=== PATIENT | female | born 1990 | race Caucasian/White ===

== ENCOUNTER 2019-08-01 14:09 | Emergency (ER) | payer OTHER, SELFPAY ==
--- NOTE | ~2019-08-01 | XR_ITS ---
EXAMINATION: XR hand LT min 3V DATE: 08/01/2019 14:41 INDICATION: Left thumb pain. TECHNIQUE: 3 views of left hand were obtained. COMPARISON: Left wrist radiographs 11/28/2008 FINDINGS: Bone alignment is normal. No fracture. Joint spaces are well maintained. IMPRESSION: 1. Normal left hand. Reviewed, dictated and finalized at location A. IMPRESSION: 1. Normal left hand.
[2019-08-01 14:32] VITALS: BP 147/72; PULSE 79; RESP 16; TEMP 37.4; O2SAT 99
--- NOTE | 2019-08-01 14:43 | ED.UPPEXIN ---
HPI - Extremity Injury (Upper) General Chief Complaint: Extremity Injury, Upper Stated Complaint: left thumb injury Time Seen by Provider: 08/01/19 14:43 Source: patient Mode of arrival: ambulatory Limitations: no limitations History of Present Illness HPI narrative: Joanne Roy is a 29 yo female with a PMH of anxiety, seasonal allergies, asthma, migraines, was doing cart was with her niece about an hour ago and heard a snap in her left thumb she did cartwheel. Rates pain is 8 out of 10 Related Data Home Medications Medication Instructions Recorded Confirmed albuterol sulfate 1 inh INHALATION QID 08/01/19 08/01/19 [id number]-iyfyvjqgneerx-knnu 1 cap PO QID 08/01/19 08/01/19 [Fioricet] levonorgestrel [Mirena] 1 device INTRAUTERINE ONCE 08/01/19 08/01/19 montelukast [Singulair] 10 mg PO DAILY 08/01/19 08/01/19 sertraline [Zoloft] 100 mg PO DAILY 08/01/19 08/01/19 topiramate [Topamax] 100 mg PO DAILY 08/01/19 08/01/19 Allergies Allergy/AdvReac Type Severity Reaction Status Date / Time cefaclor Allergy Mild Rash Unverified 08/01/19 14:38 acetaminophen Allergy Unknown Verified 08/01/19 14:38 diphenhydramine Allergy Hallucinati Verified 08/01/19 14:38 [From Benadryl] ng sumatriptan Allergy Unknown Verified 08/01/19 14:38 HYDROCODONE BIT Allergy Unknown Uncoded 08/01/19 14:38 SUMATRIPTAN SUCCINATE Allergy Unknown Uncoded 08/01/19 14:38 vasodialotors AdvReac Severe Stopped Uncoded 06/13/11 00:36 Breathing Review of Systems Review of Systems: Narrative: CONSTITUTIONAL: Denies fever, chills, sweats. EYES: Denies visual changes, redness, discharge. ENT: Denies rhinorrhea, congestion, sore throat, otalgia. CARDIOVASCULAR: Denies chest pain, palpitations, edema. RESPIRATORY: Denies dyspnea, wheezing, cough GASTROINTESTINAL: Denies abdominal pain, nausea, vomiting, diarrhea. GENITOURINARY: Denies dysuria, hematuria, abnormal discharge SKIN: Denies rash or itching. NEUROLOGIC: Denies numbness, or focal weakness. PSYCHIATRIC: Denies anxiety or depression. Left thumb pain and reduced mobility PMFSH Family History Family History Other No active medical problems Social History Social History Smoking status: Never smoker Alcohol intake: never Gender identity (if verbalized by the patient): Female Comments Have reviewed social medical and surgical history with patient; history is are not relevant to recent patient is being seen here today Exam Narrative: Exam Narrative: GENERAL: This is a well-nourished, well-developed patient, in moderate distress. HEAD: normocephalic, atraumatic. EYES: Sclera clear/white. Vision is grossly intact. EARS: External ears normal. Hearing grossly intact. NOSE: External nose normal no rhinorrhea. THROAT: Mucous membranes moist, NECK: Neck supple, good range of motion CARDIOVASCULAR: Regular rate and rhythm without murmurs, gallops, or rubs. RESPIRATORY: Clear to auscultation. Breath sounds equal bilaterally. No wheezes, rales, or rhonchi. GASTROINTESTINAL: Abdomen soft, non-tender, SKIN: warm, intact with no suspicious lesions or rash, good texture and turgor. NEURO: awake, alert, and oriented to person, place and time. There were no obvious focal neurologic abnormalities. Steady gait EXTREMITIES: Normal range of motion and. Both are splay fingers due to pain, hand/fingers are warm, pink, cap refill less than 3 seconds BACK: Nontender without deformity Course Course Emergency Course: X-ray of left hand-it is negative for fracture Placed in thumb immobilizer, naprosyn for pain Vital Signs Vital signs: Vital Signs Temperature 99.4 F 08/01/19 14:32 Pulse Rate 79 08/01/19 14:32 Respiratory Rate 16 08/01/19 14:32 Blood Pressure 147/72 H 08/01/19 14:32 Pulse Oximetry 99 08/01/19 14:32 Temperature 99.4 F 08/01/19 14:32 Pulse Rate 79 05/1
== END 2019-08-01 14:57 | disposition home or self-care (01) ==
PROVIDERS: Emergency Provider Nurse Practitioner
DX: S63.622A Sprain of interphalangeal joint of left thumb, initial encounter (principal); J45.909 Unspecified asthma, uncomplicated; Q79.60 Ehlers-Danlos syndrome, unspecified; F41.9 Anxiety disorder, unspecified; F32.9 Major depressive disorder, single episode, unspecified; X50.9XXA Other and unspecified overexertion or strenuous movements or postures, initial encounter
CPT/HCPCS: 29130; 73130; 99213; G0463

== ENCOUNTER 2019-08-24 23:04 | Emergency (ER) | payer OTHER, SELFPAY ==
--- NOTE | ~2019-08-24 | XR_ITS ---
XR knee LT min 4V DATE: 08/24/2019 23:37 INDICATION: Fall. Left knee pain and swelling TECHNIQUE: Crosstable lateral, AP and bilateral oblique views COMPARISON: None FINDINGS: No fracture or dislocation or joint effusion. No periosteal reaction or bone destruction. J oint spaces are well preserved. No radiopaque intra-articular loose body or chondrocalcinosis. IMPRESSION: Negative Reviewed, dictated and finalized at location A. IMPRESSION: Negative
[2019-08-24 23:04] VITALS: BP 114/77; PULSE 81; RESP 17; TEMP 37.2; O2SAT 100
--- NOTE | 2019-08-24 23:32 | ED.LOWEXIN ---
HPI - Extremity Injury (Lower) General Chief Complaint: Extremity Injury, Lower Stated Complaint: knee pain/ fall Time Seen by Provider: 08/24/19 23:19 History of Present Illness HPI Narrative: Patient presents with her mother for left knee pain. She fell to the concrete over a platform, from standing. The knee is swollen and bruised. She has a history of surgery on that left knee. She had no loss of consciousness. Her mother tells me that she has decreased sensation in that left anterior calf after the surgery. And that she is afraid to have another surgery in case that would get worse. She is supposed to move to [place] to be with her fianc?. She has a broken left arm from doing a cartwheel. MD complaint: knee injury and fall Onset (ago): hour(s) Injury: Left: knee Place: home Severity: moderate Relieving factors: nothing Exacerbating factors: nothing Context: fall Associated symptoms: swelling Related Data Home Medications Medication Instructions Recorded Confirmed albuterol sulfate 1 inh INHALATION QID 08/01/19 08/01/19 [id number]-rdjtodyooqohw-[id number] 1 cap PO QID 08/01/19 08/01/19 [Fioricet] levonorgestrel [Mirena] 1 device INTRAUTERINE ONCE 08/01/19 08/01/19 montelukast [Singulair] 10 mg PO DAILY 08/01/19 08/01/19 sertraline [Zoloft] 100 mg PO DAILY 08/01/19 08/01/19 topiramate [Topamax] 100 mg PO DAILY 08/01/19 08/01/19 Allergies Allergy/AdvReac Type Severity Reaction Status Date / Time cefaclor Allergy Mild Rash Verified 08/24/19 23:07 diphenhydramine Allergy Hallucinati Verified 08/24/19 23:07 [From Benadryl] ng sumatriptan Allergy Unknown Verified 08/24/19 23:07 HYDROCODONE BIT Allergy Unknown Uncoded 08/24/19 23:07 SUMATRIPTAN SUCCINATE Allergy Unknown Uncoded 08/24/19 23:07 vasodialotors AdvReac Severe Stopped Uncoded 08/24/19 23:07 Breathing Review of Systems Review of Systems: Narrative: CONSTITUTIONAL: Denies fever, chills, or sweats. EYES: Denies visual changes, redness, or discharge. ENT: Denies rhinorrhea, congestion, sore throat, or otalgia. CARDIOVASCULAR: Denies chest pain, palpitations, or edema. RESPIRATORY: Denies cough or dyspnea. GASTROINTESTINAL: Denies abdominal pain, nausea, vomiting, or diarrhea. GENITOURINARY: Denies dysuria or hematuria. SKIN: Denies rash or itching. MUSCULOSKELETAL: Denies back pain, or myalgia. NEUROLOGIC: Denies headache, numbness, or weakness. PSYCHIATRIC: Denies anxiety or depression. [facility] Surgical History Surgical History (Updated 08/24/19 @ 23:32 by Tamica Rivas MD) History of knee surgery Social History Social History (Updated 08/24/19 @ 23:33 by Tamica Rivas MD) Smoking status: Never smoker Alcohol intake: never Substance use: never Gender identity (if verbalized by the patient): Female Exam Narrative: Exam Narrative: GENERAL: Well-appearing, well-nourished, and in no acute distress. Red hair HEAD: Normocephalic, atraumatic. EYES: PERRLA and EOMI. ENT: Nares clear, no rhinorrhea or epistaxis. Mucous membranes moist. NECK: Supple. CHEST: Clear to auscultation. No respiratory distress. HEART: Regular rate and rhythm. No murmur heard. Normal peripheral pulses. ABDOMEN: Soft, nontender, nondistended, normal active bowel sounds. EXTREMITIES: Left knee with swelling and slight abrasion. SKIN: Warm, dry, no rash. NEURO: No focal deficits. Alert and oriented x3. PSYCH: Normal mood and affect. Course Reevaluation(s) Reevaluation #1: Woman to tell the patient that she has no fractures, but the x-ray does not show soft tissue. If her injury does not heal up well she will have to have an MRI, for ligaments and tendon damage. Offered her knee immobilizer. Date: 08/25/19 Time: 00:19 Vital Signs Vital signs: Vital Signs Temperature 98.9 F 08/24/19 23:04 Pulse Rate 81 08/24/19 23:04 Respiratory Rate 17 08/24/19 23:04 Blood Pressure 114/77 08/24/19 23:04 Pulse Oximetry 100 08/24/19 23:04 Temperat
[2019-08-25 00:25] VITALS: BP 107/66; PULSE 74; RESP 16; O2SAT 100
== END 2019-08-25 00:26 | disposition home or self-care (01) ==
PROVIDERS: Emergency Provider Emergency Medicine
DX: S89.92XA Unspecified injury of left lower leg, initial encounter (principal); W18.09XA Striking against other object with subsequent fall, initial encounter
CPT/HCPCS: 73564; 99283

== ENCOUNTER 2021-11-03 07:58 | Outpatient (RCR) | payer BC, SELFPAY ==
[2021-11-03 08:32] VITALS: BMI 27.8
[2021-11-03 09:15] VITALS: BMI 27.8
== END 2022-01-17 08:13 | disposition home or self-care (01) ==
LOC: ANHDMC 07:58
PROVIDERS: Visit Provider Physician Assistant
DX: E16.2 Hypoglycemia, unspecified (principal); E66.3 Overweight; Z71.3 Dietary counseling and surveillance
CPT/HCPCS: 97802

== ENCOUNTER 2024-04-03 09:01 | Emergency (ER) | payer OTHER, SELFPAY ==
--- NOTE | ~2024-04-03 | XR_ITS ---
XR finger 3rd RT min 2V Ordering provider: Anette Prajapati NP History: . rt 3rd finger pain s/p injury yesterday . Comparison: None. FINDINGS: BONES: No acute fracture or dislocation. JOINT SPACES: Normal. SOFT TISSUES: Normal. IMPRESSION: No acute osseous abnormality. Reviewed, dictated and finalized at location A. EN OPERATOR
[2024-04-03 09:19] VITALS: BP 116/65; PULSE 62; RESP 16; TEMP 36.4; O2SAT 99
--- NOTE | 2024-04-03 09:32 | ED_ITS ---
HPI - Extremity Injury (Upper) General Chief Complaint: Extremity Injury, Upper Stated Complaint: righ middle finger injury Time Seen by Provider: 04/03/24 09:34 Source: patient and RN notes reviewed Mode of arrival: ambulatory Limitations: no limitations History of Present Illness HPI narrative: 33-year-old female presents concern for injury of the 3rd digit of the right hand. Reports she smashed it in a door yesterday. She has been taking Tylenol. Reports she has trouble bending the finger MD complaint: injury to: right and finger Related Data Home Medications ?Medication ?Instructions ?Recorded ?Confirmed ?Last Taken ?Type albuterol sulfate 90 mcg/actuation 1 inh inhalation QID 08/01/19 08/01/19 Unknown History aerosol inhaler [id number]-itzyhdmupsyxx-obuivbcy 1 cap PO QID 08/01/19 08/01/19 Unknown History 50 mg-300 mg-40 mg capsule (Fioricet) levonorgestrel (Mirena) 1 device intrauterine ONCE 08/01/19 08/01/19 Unknown History montelukast 10 mg tablet 10 mg PO DAILY 08/01/19 08/01/19 Unknown History (Singulair) sertraline 100 mg tablet (Zoloft) 100 mg PO DAILY 08/01/19 08/01/19 Unknown History topiramate 100 mg tablet (Topamax) 100 mg PO DAILY 08/01/19 08/01/19 Unknown History Allergies Allergy/AdvReac Type Severity Reaction Status Date / Time cefaclor Allergy Mild Rash Verified 08/24/19 23:07 diphenhydramine (From Allergy Hallucinati Verified 08/24/19 23:07 Benadryl) ng sumatriptan Allergy Unknown Verified 08/24/19 23:07 HYDROCODONE BIT Allergy Unknown Uncoded 08/24/19 23:07 SUMATRIPTAN SUCCINATE Allergy Unknown Uncoded 08/24/19 23:07 vasodialotors AdvReac Severe Stopped Uncoded 08/24/19 23:07 Breathing Review of Systems Review of Systems: CONSTITUTIONAL: Denies malaise, chills, sweats, or fever. SKIN: Denies rash or itching, open skin, laceration, abrasion, redness, warmth, swelling. MUSCULOSKELETAL: Reports right finger pain bruising, swelling NEUROLOGIC: Denies numbness, weakness All systems reviewed & are unremarkable except as noted in HPI and below PMFSH Surgical History Surgical History (Updated 08/24/19 @ 23:32 by Tamica Rivas MD) History of knee surgery Family History Family History Other No active medical problems Social History Social History (Updated 08/24/19 @ 23:33 by Tamica Rivas MD) Smoking status: Never smoker Alcohol intake: never Substance use: never Gender identity (if verbalized by the patient): Female Spiritual care concerns: No Comments At time of signature, agree with nursing past medical, surgical, social and family history. There is no relevant family history pertinent to the presenting complaint Exam Narrative: GENERAL: Well-appearing, well-nourished, and in no acute distress. HEAD: Normocephalic, atraumatic. EYES: PERRLA, conjunctivae clear NECK: Supple. CHEST: Speaks in full sentences. No respiratory distress. HEART: Regular rate and rhythm. Normal and equal peripheral pulses. EXTREMITIES: 3rd digit hand has grossly normal strength and sensation, limited normal range of motion; patient is able to bend the finger but not fully. Moderate edema and ecchymosis. 4/5 strength with digit flexion and extension. Normal sensation with sensitivity to light touch and pain. General digit tenderness. No open wounds, no skin tenting, no devitalized tissue or atrophy, no trophic changes, no obvious deformity, alignment normal, nearby joints and structures intact. Distal pulses palpable and equal bilaterally, skin warm, dry, pink. Capillary refill less than 3 seconds. SKIN: Warm, dry, no rash. NEURO: Alert and oriented x3. PSYCH: Normal mood and affect Course Course Emergency Course: Patient is aware of diagnosis, understands and agrees to treatment plan. Anticipatory guidance given. Patient agrees to follow-up as directed and is aware of reasons to seek care at the emergency department. Portions of this record may have been created with voice recognition software Level of Care: Express Care Visit Vital Signs Vital signs: Vital Signs Temperature 97.5 F L 04/03/24 09:19 Pulse Rate 62 04/03/24 09:19 Respiratory Rate 16 04/03/24 09:19 Blood Pressure 116/65 04/03/24 09:19 Pulse Oximetry 99 04/03/24 09:19 Oxygen Delivery Room Air 04/03/24 09:19 Temperature 97.5 F L 04/03/24 09:19 Pulse Rate 62 04/03/24 09:19 Respiratory Rate 16 04/03/24 09:19 Blood Pressure 116/65 04/03/24 09:19 Pulse Oximetry 99 04/03/24 09:19 Oxygen Delivery Room Air 04/03/24 09:19 Reviewed. MDM - Extremity Injury (Upper) MDM Narrative Medical decision making narrative: Patients injury and pain is consistent with musculoskeletal etiology. No signs of neurological or vascular compromise on exam. Compartments and tissues are soft without signs of compartment syndrome. Pain is felt appropriate for further evaluation on an outpatient basis. Imaging Data My impression: Images reviewed, interpreted by radiologist, agree, see report. Radiologist's impression: XR finger 3rd RT min 2V Ordering provider: Anette Prajapati NP History: . rt 3rd finger pain s/p injury yesterday . Comparison: None. FINDINGS: BONES: No acute fracture or dislocation. JOINT SPACES: Normal. SOFT TISSUES: Normal. IMPRESSION: No acute osseous abnormality. Critical Care Time Critical Care Time Critical Care Time: No Discharge Plan Discharge Clinical Impression: Contusion of finger of right hand Patient Disposition: Home, Self-Care Condition: Stable Instructions: Contusion in Adults (ED) Additional Instructions: Avoid activities that cause pain until the pain subsides. Ice to the area 20-30 minutes 4-6 times a day Elevate above heart Orthopedic splint as directed for comfort for the next 5-7 days Tylenol for lesser pain Ibuprofen regularly for the next 2-3 days for the inflammation Follow up with your primary care provider or specialist if the condition is not improving within 1 week. If the condition worsens with numbness, tingling, decrease sensation with weakness seek treatment in the emergency room immediately. Patient Language: Wolof Prescriptions: No Action Mirena 20 mcg/24 hours (5 yrs) 52 mg Intrauterine Device 1 device INTRAUTERINE ONCE sertraline [Zoloft] 100 mg Tablet 100 mg PO DAILY montelukast [Singulair] 10 mg Tablet 10 mg PO DAILY albuterol sulfate 90 mcg/actuation Hfa Aerosol Inhaler 1 inh INHALATION QID topiramate [Topamax] 100 mg Tablet 100 mg PO DAILY poqqpfskuo-fqifokaexppbq-jiyf [Fioricet] 50-300-40 mg Capsule 1 cap PO QID naproxen [Naprosyn] 500 mg tablet 500 mg PO BID PRN (Reason: pain) Qty: 30 0RF hydrocodone-acetaminophen [[place]] 5-325 mg tablet 1 tablet PO Q4H PRN (Reason: pain) Qty: 10 0RF Follow-up/Referrals: Luis Miguel Ta MD [Physician] - (Finger injury) Oh,LATHA Lima [Primary Care Provider] - Time of Disposition: 09:52
== END 2024-04-03 10:01 | disposition home or self-care (01) ==
PROVIDERS: Emergency Provider Nurse Practitioner; PCP Physician Assistant
DX: S60.031A Contusion of right middle finger without damage to nail, initial encounter (principal); X58.XXXA Exposure to other specified factors, initial encounter
CPT/HCPCS: 29130; 73140; 99213; G0463

== ENCOUNTER 2024-11-15 13:43 | Emergency (ER) | payer OTHER, SELFPAY ==
[2024-11-15 13:55] VITALS: BP 107/57; PULSE 61; RESP 18; TEMP 36.9; O2SAT 100
--- NOTE | 2024-11-15 14:18 | ED.HEATRA ---
HPI - Head Injury General Chief complaint: Wound/Laceration Stated complaint: Head Pain / nauseous Time Seen by Provider: 11/15/24 14:18 Mode of arrival: ambulatory Limitations: no limitations History of Present Illness HPI Narrative: 34-year-old female presents with concern for headache and nausea. Reports this afternoon while at work she stood up from bending down and hit her head on a metal ladder. Reports she felt dizzy, nauseated, immediately had small episode of vomiting and now has light sensitivity and headache. She reports tenderness at the site of injury. Denies open skin MD Complaint: head injury Related Data Home Medications ?Medication ?Instructions ?Recorded ?Confirmed ?Last Taken ?Type albuterol sulfate 90 mcg/actuation 1 inh inhalation QID 08/01/19 08/01/19 Unknown History aerosol inhaler dgfyzpaega-lwztqioiqvffg-sgxmhrno 1 cap PO QID 08/01/19 08/01/19 Unknown History 50 mg-300 mg-40 mg capsule (Fioricet) levonorgestrel (Mirena) 1 device intrauterine ONCE 08/01/19 08/01/19 Unknown History montelukast 10 mg tablet 10 mg PO DAILY 08/01/19 08/01/19 Unknown History (Singulair) sertraline 100 mg tablet (Zoloft) 100 mg PO DAILY 08/01/19 08/01/19 Unknown History topiramate 100 mg tablet (Topamax) 100 mg PO DAILY 08/01/19 08/01/19 Unknown History Allergies Allergy/AdvReac Type Severity Reaction Status Date / Time cefaclor Allergy Mild Rash Verified 08/24/19 23:07 diphenhydramine (From Allergy Hallucinati Verified 08/24/19 23:07 Benadryl) ng sumatriptan Allergy Unknown Verified 08/24/19 23:07 HYDROCODONE BIT Allergy Unknown Uncoded 08/24/19 23:07 SUMATRIPTAN SUCCINATE Allergy Unknown Uncoded 08/24/19 23:07 vasodialotors AdvReac Severe Stopped Uncoded 08/24/19 23:07 Breathing Review of Systems Review of Systems: CONSTITUTIONAL: Denies malaise, chills, sweats, or fever. EYES: Denies visual changes. Reports light sensitivity GASTROINTESTINAL: Denies abdominal pain. Reports nausea, 1 small episode of vomiting he may immediately after the event SKIN: Denies open skin NEUROLOGIC: Denies numbness, weakness. Reports headache. All systems reviewed & are unremarkable except as noted in HPI and below PMFSH Surgical History Surgical History (Updated 08/24/19 @ 23:32 by Tamica Rivas MD) History of knee surgery Family History Family History Other No active medical problems Social History Social History (Updated 08/24/19 @ 23:33 by Tamica Rivas MD) Smoking status: Never smoker Alcohol intake: never Substance use: never Gender identity (if verbalized by the patient): Female Spiritual care concerns: No Comments At time of signature, agree with nursing past medical, surgical, social and family history. There is no relevant family history pertinent to the presenting complaint Exam Narrative: GENERAL: Well-appearing, well-nourished, and in no acute distress. HEAD: Normocephalic, atraumatic. EYES: PERRLA, sclera clear, and EOMI. No nystagmus. ENT: Nares clear, turbinates pink, no rhinorrhea or epistaxis. Mucous membranes moist. TM pearly bray with sharp light reflex bilaterally; no tragal tenderness. Oropharynx without erythema or lesions. Tonsils not enlarged and without exudate. NECK: Supple. No Munguia sign or raccoon sign CHEST: No respiratory distress. Clear to auscultation. No bony deformities, no asymmetry. Speaks in full sentences. HEART: Regular rate and rhythm. EXTREMITIES: Normal range of motion. No edema. Normal strength and sensation. SKIN: Warm, dry, no visible rash. NEURO: Alert and oriented x3. No focal deficits. Cranial nerves II through XII grossly intact PSYCH: Normal mood and affect Course Course Emergency Course: Patient is aware of diagnosis, understands and agrees to treatment plan. Anticipatory guidance given. Patient agrees to follow-up as directed and is aware of reasons to seek care at the emergency department. Patient was given strict instructions on going to the emergency room of her symptoms change, worsen Portions of this record may have been created with voice recognition software Level of Care: Express Care Visit Vital Signs Vital signs: Vital Signs Temperature 98.4 F 11/15/24 13:55 Pulse Rate 61 11/15/24 13:55 Respiratory Rate 18 11/15/24 13:55 Blood Pressure 107/57 L 11/15/24 13:55 Pulse Oximetry 100 11/15/24 13:55 Oxygen Delivery Room Air 11/15/24 13:55 Temperature 98.4 F 11/15/24 13:55 Pulse Rate 61 11/15/24 13:55 Respiratory Rate 18 11/15/24 13:55 Blood Pressure 107/57 L 11/15/24 13:55 Pulse Oximetry 100 11/15/24 13:55 Oxygen Delivery Room Air 11/15/24 13:55 Reviewed. MDM - Head Injury MDM Narrative Medical decision making narrative: CCHR score: Signs of open or depressed skull fracture: No Munguia sign/raccoon eyes: No 2 or more episodes of vomiting: No Age 65 years +: No Amnesia for events occurring 30 minutes prior to trauma: No Dangerous mechanism of injury (pedestrian struck by motor vehicle, occupant ejected from motor vehicle, fall from >3 feet or >5 stairs): No Exam findings show no acute concerns; patient is alert and oriented with normal neurological exam. Patient given reasons to go to the emergency department. Patient is appropriate for outpatient treatment and follow-up. Critical Care Time Critical Care Time Critical Care Time: No Discharge Plan Discharge Clinical Impression: Head injury Patient Disposition: Home Condition: Stable Instructions: Head Injury (ED) Additional Instructions: 1) Please follow-up with your primary care doctor as needed. 2) If you have any worsening of symptoms (worsening headache, vomiting, etc.) or any other urgent concerns please go to the ER. 3) Please take Tylenol as needed for pain. 4) Please read and follow information included in discharge instructions. Having an established primary care provider is essential to your health. Please call [phone] for help finding a primary care provider in your area that accepts your insurance. Patient Language: Bhutanese Prescriptions: No Action Mirena 20 mcg/24 hours (5 yrs) 52 mg Intrauterine Device 1 device INTRAUTERINE ONCE sertraline [Zoloft] 100 mg Tablet 100 mg PO DAILY montelukast [Singulair] 10 mg Tablet 10 mg PO DAILY albuterol sulfate 90 mcg/actuation Hfa Aerosol Inhaler 1 inh INHALATION QID topiramate [Topamax] 100 mg Tablet 100 mg PO DAILY uyghvmprth-dsxozgucnagyq-zaij [Fioricet] 50-300-40 mg Capsule 1 cap PO QID naproxen [Naprosyn] 500 mg tablet 500 mg PO BID PRN (Reason: pain) Qty: 30 0RF hydrocodone-acetaminophen [[place]] 5-325 mg tablet 1 tablet PO Q4H PRN (Reason: pain) Qty: 10 0RF Follow-up/Referrals: PHYSICIAN,PARKING METER ATTENDANT [Primary Care Provider, Internal Medicine] Stand Alone Forms: Work/School Release IP Time of Disposition: 14:28
== END 2024-11-15 14:30 | disposition home or self-care (01) ==
PROVIDERS: Emergency Provider Nurse Practitioner
DX: S09.90XA Unspecified injury of head, initial encounter (principal); W22.8XXA Striking against or struck by other objects, initial encounter; Y99.0 Civilian activity done for income or pay
CPT/HCPCS: 99212; G0463

== ENCOUNTER 2025-02-06 07:58 | Emergency (ER) | payer OTHER, SELFPAY ==
--- NOTE | ~2025-02-06 | XR_ITS ---
Examination: XR ankle LT min 3V, XR foot LT min 3V Clinical History: TWIST Comparison: None Technique: 4 views left ankle, 4 views left foot Findings/impression: Left ankle: 1. No fracture or dislocation. Left foot: 1. No fracture or dislocation. 2. Calcaneal bone island. 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
[2025-02-06 08:02] VITALS: BP 119/79; PULSE 76; RESP 18; TEMP 36.6; O2SAT 100
--- NOTE | 2025-02-06 08:13 | ED.LOWEXIN ---
HPI - Extremity Injury (Lower) General Chief Complaint: Extremity Injury, Lower Stated Complaint: ankle injury Time Seen by Provider: 02/06/25 08:10 Source: patient and EMS Mode of arrival: EMS Limitations: no limitations History of Present Illness HPI Narrative: 34 YEARS OLD WHITE FEMALE TWISTED LEFT ANKLE WHILE JOGGING THIS MORNING PRIOR TO ARRIVAL. NO OTHER INJURIES Related Data Home Medications ?Medication ?Instructions ?Recorded ?Confirmed ?Last Taken ?Type albuterol sulfate 90 mcg/actuation 1 inh inhalation QID 08/01/19 08/01/19 Unknown History aerosol inhaler levonorgestrel (Mirena) 1 device intrauterine ONCE 08/01/19 08/01/19 Unknown History montelukast 10 mg tablet 10 mg PO DAILY 08/01/19 08/01/19 Unknown History (Singulair) sertraline 100 mg tablet (Zoloft) 100 mg PO DAILY 08/01/19 08/01/19 Unknown History Aimovig Autoinjector 11/15/24 Unknown History methylphenidate HCl 10 mg tablet mg 11/15/24 Unknown History tirzepatide (weight loss) 2.5 mg subcut 11/15/24 Unknown History mg/0.5 mL subcutaneous pen injector (Zepbound) Allergies Allergy/AdvReac Type Severity Reaction Status Date / Time cefaclor Allergy Mild Rash Verified 02/06/25 08:31 diphenhydramine (From Allergy Hallucinati Verified 02/06/25 08:31 Benadryl) ng sumatriptan Allergy Unknown Verified 02/06/25 08:31 HYDROCODONE BIT Allergy Unknown Uncoded 11/15/24 14:37 SUMATRIPTAN SUCCINATE Allergy Unknown Uncoded 11/15/24 14:37 vasodialotors AdvReac Severe Stopped Uncoded 11/15/24 14:37 Breathing Review of Systems Review of Systems: All systems reviewed & are unremarkable except as noted in HPI and below PMFSH Surgical History Surgical History History of knee surgery Family History Family History Other No active medical problems Social History Social History Smoking status: Never smoker Alcohol intake: never Substance use: never Gender identity (if verbalized by the patient): Female Spiritual care concerns: No Exam Narrative: GENERAL APPEARANCE: WELL-DEVELOPED, WELL-NOURISHED SKIN: NORMAL COLOR HEAD: NORMOCEPHALIC, NONTRAUMATIC EYES: CLEAR CONJUNCTIVA ENT: OROPHARYNX NORMAL, EARS NORMAL, NOSE NORMAL NECK: SUPPLE, NONTENDER CHEST AND RESPIRATORY: AIRWAY PATENT, NO RESPIRATORY DISTRESS, NO ACCESSORY MUSCLE USE HEART: REGULAR RATE/RHYTHM ABDOMEN: SOFT, NONTENDER, NO ORGANOMEGALY, QUIET BOWEL SOUNDS VASCULAR: NORMAL PERIPHERAL PULSES, NORMAL CAPILLARY REFILL. MUSCULOSKELETAL: DIFFUSE TENDERNESS LEFT ANKLE, NO BRUISES, NO SWELLING, NO DEFORMITY, LIMITED RANGE OF MOTION BECAUSE OF PAIN NEUROLOGIC: ALERT AND ORIENTED ?3, INCIDENT COORDINATOR IS NORMAL TESTED, NO GROSS MOTOR DEFICIT Course Vital Signs Vital signs: Vital Signs Temperature 36.6 C 02/06/25 08:02 Pulse Rate 76 02/06/25 08:02 Respiratory Rate 18 02/06/25 08:02 Blood Pressure 119/79 02/06/25 08:02 Pulse Oximetry 100 02/06/25 08:02 Oxygen Delivery Room Air 02/06/25 08:02 Temperature 36.6 C 02/06/25 08:02 Pulse Rate 72 02/06/25 09:12 Respiratory Rate 16 02/06/25 09:12 Blood Pressure 123/79 02/06/25 09:12 Pulse Oximetry 100 02/06/25 09:12 Oxygen Delivery Room Air 02/06/25 08:02 MDM - Extremity Injury (Lower) MDM Narrative Medical decision making narrative: RIGHT ANKLE PAIN AFTER TWISTING FRACTURE VERSUS SPRAIN/STRAIN X-RAY SHOWED NO ACUTE OSSEOUS ABNORMALITY DIAGNOSIS RIGHT ANKLE SPRAIN/STRAIN CLEM WRAP, CRUTCHES, TYLENOL, IBUPROFEN NEEDED THE PT WAS DISCHARGED TO HOME.THE PT,S CONDITION UPON DISCHARGE WAS FAIR,EDUCATION WAS PROVIDED TO THE PT IN REFERENCE TO THE FINAL IMPRESSION,DISCHARGE STUDY RESULTS,TREATMENT,PROGNOSIS AND NEED FOR FOLLOW UP . Differential Diagnosis Differential diagnosis: Likely other ( ABOVE) Imaging Data Radiologist's impression: LEFT ANKLE X-RAY AND LEFT FOOT X-RAY SHOWED NO ACUTE OSSEOUS ABNORMALITY Critical Care Time Critical Care Time Critical Care Time: No Discharge Plan Discharge Clinical Impression: Left ankle sprain Patient Disposition: Home Condition: Stable Instructions: Ankle Sprain (ED) Additional Instructions: RETURN IF SYMPTOMS ARE WORSENING , CALL YOUR FAMILY PHYSICIAN FOR APPOINTMENT, TAKE TYLENOL, IBUPROFEN NEEDED FOR ACHES AND PAIN, CONTINUE HOME MEDICATIONS. ICE PACK 20 MINUTES/HOUR FOR THE NEXT 24 HOURS KEEP FOOT ELEVATED CRUTCHES NEEDED Patient Language: Bahraini Prescriptions: No Action Mirena 20 mcg/24 hours (5 yrs) 52 mg Intrauterine Device 1 device INTRAUTERINE ONCE sertraline [Zoloft] 100 mg Tablet 100 mg PO DAILY montelukast [Singulair] 10 mg Tablet 10 mg PO DAILY albuterol sulfate 90 mcg/actuation Hfa Aerosol Inhaler 1 inh INHALATION QID methylphenidate HCl 10 mg tablet Zepbound 2.5 mg/0.5 mL pen injector SUBCUT Aimovig Autoinjector Follow-up/Referrals: PHYSICIAN,ARCADE GAME TECHNICIAN [Primary Care Provider, Internal Medicine] Stand Alone Forms: Work/School Release IP
[2025-02-06 08:16] VITALS: BP 125/85; PULSE 75; RESP 18; O2SAT 98
[2025-02-06] MEDS: IBUPROFEN 400 MG TABLET 800 MG PO (09:10)
[2025-02-06 09:12] VITALS: BP 123/79; PULSE 72; RESP 16; O2SAT 100
--- OUTSIDE RECORDS SUMMARY | 2025-02-06 10:27 | XMS_ITS | Clinical Summary ---
Author Organization [facility] [address] Address [address] [place] [address] Care Team Providers Care Jowl Trimmer Name Role Phone Damaris Casiano Primary Care Provider + Allergies Active Allergy Reactions Criticality Noted Date Comments Cefaclor Diphenhydramine Other (See comments) Low Out of body experience Morphine Nausea And Vomiting 03/05/2016 Severe hallucinations Mushroom Unknown 08/31/2022 Peanut Itching Low 02/02/2017 Sumatriptan Succinate Anaphylaxis High Venom-Honey Bee Edema Medium 08/29/2022 Medications albuterol HFA (PROVENTIL HFA,VENTOLIN HFA,PROAIR HFA) 90 mcg/actuation inhalerIndications :Acute Asthma Attack Inhale 1 puff every 4 (four) hours as needed for shortness of breath 11/23/19 08 Active hydrOXYzine (ATARAX) 25 mg tabletIndications: Anxiety Take 1 tablet (25 mg total) by mouth every 8 (eight) hours as needed for itching or anxiety 90 tablet 1 05/30/19 20 Active albuterol 2.5 mg /3 mL (0.083 %) nebulizer solutionIndication s:Mild intermittent asthma without complication Take 3 mL (2.5 mg total) by nebulization 4 (four) times a day as needed for wheezing or shortness of breath 60 vial 1 05/30/19 20 Active Additional Information Patient taking differently:2.5 mg nebulization 4 times daily PRN, wheezing, shortness of breath,Indications: Acute Asthma Attack, Informant: Self, Reported on 08/29/2022 montelukast (SINGULAIR) 10 mg tabletIndications: Mild intermittent asthma without complication Take 1 tablet (10 mg total) by mouth nightly 90 tablet 1 05/30/19 20 Active traMADoL (ULTRAM) 50 mg tablet Take 1 tablet (50 mg total) by mouth every 6 (six) hours 12 tablet 09/28/19 22 Active ondansetron ODT (ZOFRAN-ODT) 4 mg disintegrating tablet Take 1 tablet (4 mg total) by mouth every 8 (eight) hours as needed for nausea or vomiting 20 tablet 09/28/19 22 Active ibuprofen 200 mg tab/capIndications :Pain Take 4 tablet/capsule (800 mg total) by mouth every 6 (six) hours as needed for pain Active acetaminophen (Tylenol Extra Strength) 500 mg tabletIndications: Pain Take 1 tablet (500 mg total) by mouth every 6 (six) hours as needed for pain Active erenumab-aooe 140 mg/mL auto-injector Inject 140 mg under the skin every 30 (thirty) days 1 mL 11 11/09/19 23 Active traMADol-acetamino phen (ULTRACET) 37.5-325 mg per tabletIndications: Pain Take 1 tablet by mouth every 6 (six) hours as needed for pain for up to 3 days 12 tablet 02/22/20 23 Active ketorolac (TORADOL) 10 mg tablet Take 1 tablet (10 mg total) by mouth every 6 (six) hours as needed for pain 20 tablet 1 02/23/[address] (DEPAKOTE) 250 mg EC tablet Take 1 tablet (250 mg total) by mouth 2 (two) times a day 60 tablet 02/23/20 23 Active liraglutide (VICTOZA) 0.6 mg/0.1 mL (18 mg/3 mL) injectionIndicatio ns:type 2 diabetes mellitus Inject 1.2 mg under the skin daily Indications: type 2 diabetes mellitus 3 mL 05/01/19 24 Active levonorgestreL (MIRENA) IUD Take by intrauterine route. 08/04/19 22 Active fluconazole (DIFLUCAN) 150 mg tablet daily as needed 10/24/19 24 Active Hospital, Clinic, or Other Facility Administered Medication Ordered Dose Route Frequency Start Date End Date Status levonorgestreL (MIRENA) 20 mcg/24 hours (5 yrs) 52 mg IUDIndications:Enc ounter for removal and reinsertion of IUD intrauterine Continuous (implanted device) 06/06/2019 Active Active Problems Problem Noted Date Diagnosed Date Lumbar radiculopathy 09/23/2024 Hyperthyroidism 05/01/2023 Assessment & Plan (05/01/2023 11:09 PM BASTING MARKER): The differential for the abnormal TFT includes hyperthyroidism with lagging TSH, biotin interference, TSH-secreting pituitary tumor. Recommendations: - Repeat thyroid labs - prolactin, FSH, estradiol, IGF Abnormal laboratory test 05/01/2023 Assessment & Plan (05/01/2023 11:12 PM BASTING MARKER): I strongly suspect laboratory error, ie biotin interference, as the cause of the abnormal thyroid labs. Repeat is ordered. Status migrainosus 02/21/2023 Assessment & Plan (02/21/2023 5:33 AM BASTING MARKER): Presents with acute exacerbation of her migraine Photophobia, phonophobia Nausea, focal neurological weakness, all of which patient reports that this is her baseline. 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 Assessment & Plan (09/01/2022 1:45 PM CDT): S/p PVC ablation via access of bilateral femoral vv. Telemetry overnight with some PVCs - Dicussed with EP, ok for discharge today - ASA 81mg daily for one month; patient to get OTC - Follow-up with Dr. Martinez in 4-6 weeks for repeat 3d Holter monitor Asthma 08/31/2022 Assessment & Plan (08/31/2022 4:17 PM CDT): - Cont home inhalers Palpitations 05/29/2022 Thumb pain, left 08/28/2019 Overweight (BMI 25.0-29.9) 06/02/2019 Assessment & Plan (05/01/2023 11:11 PM BASTING MARKER): Check A1c for evidence of pre-diabetes. For weight loss, I recommend Zepbound. I did not prescribe this because care is provided by PCP. Assessment & Plan (06/02/2019 11:57 AM CDT): BMI is elevated. Discussed diet and exercise to achieve weight loss. Encounter for preventative adult health care exsofía mination 05/30/2019 Assessment & Plan (05/30/2019 12:26 PM CDT): Patient is here to today for annual physical exam. The patient was evaluated and all health maintenance objectives were discussed and addressed. Lab work ordered. PAP with Dr. North. IUD in place. 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 Does well on albuterol as needed. Will continue. Assessment & Plan (05/30/2019 12:27 PM CDT): Chronic. Does well on albuterol as needed. Will continue. Migraine without aura and wi thout status migrainosus, not intractable 09/29/2017 Assessment & Plan (07/02/2019 2:38 PM CDT): Chronic. She has gotten up to 50mg twice a day. She continues to have some migraines. She will take naproxen or zofran as needed. Assessment & Plan (06/01/2019 7:45 PM CDT): Chronic. Would like to be on topiramate daily. She was previously doing well. She would like to continue. Will restart at low dose and have her titrate up to 100mg daily. She will sometimes take zofran, naproxen, toradol or tramadol as needed. Knee pain 05/16/2016 Anxiety 02/18/2016 Assessment & Plan (08/31/2022 4:17 PM CDT): - Cont hydroxyzine PRN - Cont sertraline Assessment & Plan (07/02/2019 2:26 PM CDT): Chronic. Doing well on sertraline. She has the hydroxyzine to help with sleep. Assessment & Plan (05/30/2019 12:26 PM CDT): Chronic. Doing well on sertraline. Will continue. She would like an as needed medication. Will try hydroxyzine as needed. Advised can make her tired. 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 She does not think she has ever had a cardiac workup and her sister had had heart issues. Will get an echo. 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 Medicine Orthopaedic Surgery [address] [place] [address] Tanesha Fernandes RMA Chronic left-sided low back pain, unspecified whether sciatica present (Primary Dx); Lumbar radiculopathy from Last 3 Months Immunizations Immunization Administration Dates Next Due DTP 02/23/1993,1992,1992 Hep B, Adolescent or Pediatric 02/23/1993,1992,1992 HiB 02/23/1993,1992,1992 Influenza, Quadrivalent, Spl it, Preservative Free, Intramuscular 04/28/2017 Influenza, Trivalent, IM (MDV) 01/13/2015 OPV 1992,1992 Tdap 04/15/2015 Surgical History Surgery Date Site/Laterality Comments PATELLA ARTHROPLASTY 03/20/2015 - 03/19/2016 Left TYMPANOSTOMY TUBE PLACEMENT FL UPPER GI AIR CONTRAST W KUB 04/16/2024 Left TRANSFORAMINAL EPIDURAL INJE CTION LUMBAR SACRAL 1 LEVEL LEFT 09/23/2024 Left Medical History Medical History Date Comments Other non-drug allergy Allergies - (Added by TW Conv) Uncomplicated asthma Asthma - (A dded by TW Conv) Major depressive disorder, single episode Depression - (Added by TW Conv) Nystagmus Nystagmus - (Add ed by TW Conv) Hemiplegic migraine without status migrainosus, not intractable Familial hemiplegic migra ine type 1 - (Added by TW Conv) Hemiplegic migraine without status migrainosus, not intractable Familial hemiplegic migra ine type 1 - (Added by TW Conv) Pedro-Danlos syndrome Asthma Hemorrhagic ovarian cyst Migraines Atrial septal aneurysm PONV (postoperative nausea and vomiting) Motion sickness Family History Medical History Relation Name Comments Migraines Father Lung cancer Maternal Grandfather Diabetes Maternal Grandmother Anesthesia problems Mother PONV Asthma Mother Diabetes Mother Pedro-Danlos syndrome Mother Hypertension Mother Breast cancer Mother's Sister Asthma Sister Migraines Sister Colon cancer Neg Hx Ovarian cancer Neg Hx Uterine cancer Neg Hx Relation Name Status Comments Father Maternal Grandfather Maternal Grandmother Mother Mother's Sister Sister Social History Tobacco Use Types Packs/Day Years Used Date Smoking Tobacco: Never Smokeless Tobacco: Never Tobacco Cessation:Counseling Given: Not Answered Alcohol Use Standard Drinks/Week Comments Not Currently 0 (1 standard drink = 0.6 oz pur e alcohol) 1-2x per month [facility] Utilities Answer Date Recorded In the past 12 months has th e electric, gas, oil, or water company threatened to shut off services in your home? No 02/21/2023 Social Connection and Isolation Panel Answer Date Recorded In a typical week, how many times do you talk on the phone with family, friends, or neighbors? More than three times a week 02/21/2023 How often do you get togethe r with friends or relatives? More than three times a week 02/21/2023 How often do you attend chur ch or restorationist services? Never 02/21/2023 Do you belong to any clubs o r organizations such as shinto groups, unions, fraternal or athletic groups, or school groups? No 02/21/2023 How often do you attend meet ings of the clubs or organizations you belong to? Never 02/21/2023 Are you , , di vorced, , never , or living with a partner? Living with partner 02/21/2023 AUDIT-C Answer Date Recorded Q1: How often do you have a drink containing alcohol? Never 08/29/2022 Q2: How many drinks containi ng alcohol do you have on a typical day when you are drinking? Patient does not drink Q3: How often do you have si x or more drinks on one occasion? Never 08/29/2022 Overall Financial Resource Strain (CARDIA) Answe r Date Recorded How hard is it for you to pa y for the very basics like food, housing, medical care, and heating? Not very hard 02/21/2023 PHQ-2 Answer Date Recorded PHQ-2 Total Score (If total score is 3 or more points, staff should administer the PHQ-9) 0 05/30/2019 Hunger Vital Sign Answer Date Recorded Within the past 12 months, y ou worried that your food would run out before you got the money to buy more. Never true 02/22/20 23 Within the past 12 months, t he food you bought just didn't last and you didn't have money to get more. Never true 02/21/2023 PRAPARE - Transportation Answer Date Re corded In the past 12 months, has l ack of transportation kept you from medical appointments or from getting medications? No 07/2022 In the past 12 months, has l ack of transportation kept you from meetings, work, or from getting things needed for daily living? No 02/21/2023 Housing Stability Vital Sign Answer Nimesh e Recorded In the last 12 months, was t here a time when you were not able to pay the mortgage or rent on time? No 02/21/2023 In the last 12 months, how many places have you lived? 1 02/21/2023 In the last 12 months, was t here a time when you did not have a steady place to sleep or slept in a [place] (including now)? No 02/21/2023 Personal Safety Answer Date Recorded Have you ever been in or are you currently in a harmful physical or emotional relationship or is someone making you feel afraid or unsafe? Denies 10/22/2023 Comments No Sex and Gender Information Value Date Recorded Sex Assigned at Not on file Legal Sex Female 9:23 PM BASTING MARKER Gender Identity Not on file Sexual Orientation Not on file Last Filed Vital Signs Vital Sign Reading Time Taken Comments Blood Pressure 97/66 10/22/2023 12:00 PM CDT Pulse 61 10/22/2023 12:00 PM CDT Temperature 37 C (98.6 F) 10/22/2023 9:29 AM CDT Respiratory Rate 27 10/22/2023 12:00 PM CDT Oxygen Saturation 99% 10/22/2023 12:00 PM CDT Inhaled Oxygen Concentration - - Weight 86.2 kg (190 lb) 09/23/2024 12:58 PM CDT Height 170.2 cm (5' 7) 09/23/2024 12:58 PM CDT Body Mass Index 29.76 09/23/2024 12:58 PM CDT Plan of Treatment Health Maintenance Due Date Last Done Comments Cervical Cancer Screening 1992 Hepatitis C Screening 1992 Varicella Vaccines (1 of 2 - 13+ 2-dose series) 2005 Pneumococcal vaccine <65 (1 of 2 - PCV) 07/16/2011 HPV Vaccines (1 - 3-dose SCD M series) 07/16/2019 Depression Screening 05/29/2020 05/30/2019 Regular Well Visit/Exam 18-64 05/29/2020 05/30/2019, 05/07/2019 Influenza Vaccine (#1) 2024 , 04/28/2017, 01/13/2015 DTaP/Tdap/Td Vaccine (5 - Td or Tdap) 04/15/2025 04/15/2015, 02/23/1993, 1992, Additional history exists Hepatitis B Screening Completed 02/23/1993 , 1992, 1992 Medical Devices Implanted Type Area Digital Strategy Director Device Identifier Shelf Expiration Date Model / Serial / Lot [employer] Vascade Mvp 6-12fr Venous Closure [id number] - [id number] - [id number] Implanted:Qty: 1 on 08/31/2022 by Jake Martinez MD at [facility] Collagen Right: Groin [employer] 05/13/2024 [id number] [id number] / [id number] / [id number] [employer] Vascade Mvp 6-12fr Venous Closure [id number] - [id number] - [id number] Implanted:Qty: 1 on 08/31/2022 by Jake Martinez MD at [facility] Collagen Right: Groin [employer] 05/13/2024 800-612C- [id number] / [id number] / [id number] [employer] Device Vascular Closure Femoral Artery Bioabsorbable Dual Method Vascade 6-7fr Collagen [id number] - [id number] - [id number] Implanted:Qty: 1 on 08/31/2022 by Jake Martinez MD at [facility] Collagen Left: Groin [employer] 05/23/2024 [id number] [id number] / [id number] / [id number] Insurance [place] [address] [place] [address] Advance Directives For more information, please contact: [phone] * Full Code (Latest Code Status on File) Date Activated Date Inactivated Comments 02/21/2023 5:40 AM 02/22/2023 7:15 PM * Full Code Date Activated Date Inactivated Comments 08/31/2022 4:19 PM 09/01/2022 6:30 PM Care Teams Jowl Trimmer Relationship Specialty Start Date End Date Damaris Casiano PA PCP - General Physician Farm Supervisor 07/23/21
--- OUTSIDE RECORDS SUMMARY | 2025-02-06 10:27 | XMS_ITS | Encounter Summary ---
Author Organization [facility] Address [address] [place] [address] Phone Care Team Providers Care Land Acquisition Manager Name Role Phone Starr Adrian MD Primary Care Provider Damaris Casiano Primary Care Provider + Encounter Details Date Type Department Care Team (Latest Contact Info) Description 12/16/2020 Orders Only [facility] Pallavi Rodriguez RN Social History Tobacco Use Types Packs/Day Years Used Date Smoking Tobacco: Never Smokeless Tobacco: Never Alcohol Use Standard Drinks/Week Comments Yes 0 (1 standard drink = 0.6 oz pur e alcohol) 1-2x per month PHQ-2 Answer Date Recorded PHQ-2 Total Score (If total score is 3 or more points, staff should administer the PHQ-9) 0 05/30/2019 Comments No Sex and Gender Information Value Date Recorded Sex Assigned at Not on file Legal Sex Female 9:23 PM FREIGHT RECEIVER Gender Identity Not on file Sexual Orientation Not on file documented as of this encounter Plan of Treatment Not on file documented as of this encounter Procedures Procedure Name Priority Date/Time Associated Diagnosis Comments CARDIOLOGY DOCUMENT SCAN 12/16/2020 documented in this encounter Results * CARDIOLOGY DOCUMENT SCAN (12/16/2020) Anatomical Region Laterality Modality Other us Pallavi Rodriguez RN CV CARDIAC SERVICES PROCEDURES Final Result documented in this encounter Visit Diagnoses Not on filedocumented in this encounter Care Teams Land Acquisition Manager Relationship Specialty Start Date End Date Starr Adrian MD [address] [facility] [address] [place] [address] PCP - General Internal Medicine 05/30/19 07/22/21 Damaris Casiano PA [address] [facility] [address] [address] [address] [place] [address] PCP - General Physician System Designer 07/23/21 documented as of this encounter
--- OUTSIDE RECORDS SUMMARY | 2025-02-06 10:27 | XMS_ITS | Encounter Summary ---
Author Organization [facility] Address [address] [place] [address] Phone Care Team Providers Care [employer] Installer Name Role Phone Damaris Casiano Primary Care Provider + Reason for Referral * Diagnostic Imaging (Routine) - Pending Review Specialty Diagnoses / Procedures Referred By Contac t Referred To Contact Radiology Diagnoses Chronic left-sided low back pain, unspecified whether sciatica present Lumbar radiculopathy Procedures IR Transforaminal Epidural Injection Lumbar Sacral 1 Level Left Maryam Pearson MD [address] [place] [address] Phone: tel: fax: [facility] [address] [place] [address] Referral ID Status Reason Start Date Expiration Date V isits Requested Visits Authorized [id number] Pending Review 02/05/2025 03/07/2026 1 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 Encounter Details Date Type Department Care Team (Late st Contact Info) Description 02/05/2025 Orders Only [facility] Medicine Orthopaedic Surgery [address] [place] [address] Loser, Tanesha, RMA Chronic left-sided low back pain, unspecified whether sciatica present (Primary Dx); Lumbar radiculopathy Social History Tobacco Use Types Packs/Day Years Used Date Smoking Tobacco: Never Smokeless Tobacco: Never Alcohol Use Standard Drinks/Week Comments Not Currently 0 (1 standard drink = 0.6 oz pur e alcohol) 1-2x per month [facility] Utilities Answer Date Recorded In the past 12 months has e electric, gas, oil, or water company [...] often do you attend chur ch or episcopal services? Never 02/21/2023 Do you belong to any clubs o r organizations such as scientologist groups, unions, fraternal or athletic groups, or [...] you are drinking? Patient does not drink 3 Q3: How often do you have si [...] place to sleep or slept in a long term (including now)? No 02/21/2023 Personal Safety Answer Date Recorded Have you ever been in or are you currently in a harmful physical or emotional relationship or is someone making you feel afraid or unsafe? 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 Gender Identity Not on file Sexual Orientation Not on file documented as of this encounter Plan of Treatment Scheduled Orders Name Type Priority Associated Diagnoses Orde r Schedule IR Transforaminal Epidural Injection Lumbar Sacral 1 Level Left Imaging Schedule Routine, Read Routine (OP Routine) Chronic left-sided low back pain, unspecified whether sciatica present Lumbar radiculopathy Expected: 02/05/2025, Expires: 02/05/2026 documented as of this encounter Visit Diagnoses Diagnosis Chronic left-sided low back pain, unspecified whether sciatica present- Primary Lumbar radiculopathy Thoracic or lumbosacral neuritis or radiculitis, unspecified documented in this encounter Care Teams [employer] Installer Relationship Specialty Start Date End Date Damaris Casiano PA PCP - General Physician 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
== END 2025-02-06 10:07 | disposition home or self-care (01) ==
PROVIDERS: Emergency Provider Emergency Medicine
DX: S93.402A Sprain of unspecified ligament of left ankle, initial encounter (principal); X50.9XXA Other and unspecified overexertion or strenuous movements or postures, initial encounter; Y93.02 Activity, running
CPT/HCPCS: 73610; 73630; 99283; A9270